=== PATIENT | female | born 1970 | race Two or more races ===

== ENCOUNTER 2018-05-07 09:11 | Emergency (ER) | payer MEDICAID ==
[~2018-05-07] VITALS: Ht 170.2 cm; Wt 155.0 kg
[2018-05-07 09:13] VITALS: BP 199/88
[2018-05-07] MEDS ORDERED: ibuprofen tablet 400 MG TABLET PO ONE (11:45)
== END 2018-05-07 11:48 | disposition home or self-care (01) ==
LOC: ER 09:11
DX: I80.01 Phlebitis and thrombophlebitis of superficial vessels of right lower extremity (principal); F12.90 Cannabis use, unspecified, uncomplicated; F15.90 Other stimulant use, unspecified, uncomplicated; Z88.8 Allergy status to other drugs, medicaments and biological substances
CPT/HCPCS: 93971; 99284

== ENCOUNTER 2018-06-21 08:43 | Emergency (ER) | payer MEDICAID ==
[~2018-06-21] VITALS: Ht 167.6 cm; Wt 154.6 kg
[~2018-06-21 08:43] MED LIST: CEPH750C9 PO
[2018-06-21 08:44] VITALS: BP 139/80
[2018-06-21] MEDS ORDERED: IBUP-1985 PO (09:27)
[2018-06-21] MEDS ORDERED: ketorolac tromethamine 15mg/ml inj. IM ONE (09:30)
== END 2018-06-21 10:26 | disposition home or self-care (01) ==
LOC: ER 08:44
DX: M25.512 Pain in left shoulder (principal); F12.90 Cannabis use, unspecified, uncomplicated; F15.90 Other stimulant use, unspecified, uncomplicated; Z88.5 Allergy status to narcotic agent; Z79.2 Long term (current) use of antibiotics; Z79.899 Other long term (current) drug therapy
CPT/HCPCS: 73030; 96372; 99283; J1885